=== PATIENT | male | born 1965 | race Two or more races ===

== ENCOUNTER → 2025-07-19 | Outpatient (CLI) | payer MEDICAID, SELFPAY ==
--- NOTE | 2025-07-19 11:30 | XR_ITS ---
Examination: Abdomen sonogram, complete Date and time of exam: July 19, 2025 1148 hours INDICATIONS: Elevated laboratory enzyme values on examination one month ago. Technique: Multiple real-time grayscale transabdominal sonographic images of the abdomen have been obtained. Findings: Normal gallbladder Normal common bile duct 0.2 cm Pancreatic head 1.9 cm Aorta not enlarged Liver 12.4 cm fatty infiltration smooth contour Normal hepatopedal portal venous flow Patent IVC Right kidney 11.0 cm cortex 1.5 cm 23 mm x 24 mm lower pole cyst Left kidney 11.3 cm cortex 1.6 cm Moderate bilateral renal scar formation Spleen 9.7 cm IMPRESSION: Normal gallbladder Fatty infiltration throughout the liver Moderate bilateral renal parenchymal scar formation
== END | disposition home or self-care (01) ==
PROVIDERS: PCP Nurse Practitioner Primary Care; Referring Provider Nurse Practitioner Primary Care; Visit Provider Nurse Practitioner Primary Care
DX: K76.0 Fatty (change of) liver, not elsewhere classified (principal); N28.89 Other specified disorders of kidney and ureter
CPT/HCPCS: 76700